=== PATIENT | male | born 1950 | race Caucasian/White ===

== ENCOUNTER 2017-07-06 11:21 | Inpatient (IN) | payer BC ==
[~2017-07-06] VITALS: Ht 175.3 cm; Wt 104.3 kg
[~2017-07-06 11:21] MED LIST: COUMADIN; LIPITOR20 MG PO; LOVENOX; PROSCAR5 MG PO; WARFARIN SODIUM5 MG PO; Z.0.LIPITOR20 MG
--- OUTSIDE RECORDS SUMMARY | 2017-07-06 11:24 | XMS REPORT | Clinical Summary ---
Author Author Brendan Church Organization [facility] Address Unknown Phone Unavailable Care Team Providers Care Platform Inspector Name Role Phone Asked, Pcp PCP Unavailable Allergies Active Allergy Reactions Severity Noted Date Comments Heparin 01/20/2016 Morphine Hives 01/20/2016 Current Medications Prescription Sig. Disp. Refills Start End Date Status Date calcium-vits 1 tab once daily Active P6-K-F1-minerals 166.75 mg- 166.75 unit capsule MULTIVITAMIN/IRON/FOLIC 1 tab daily Active ACID (CENTRUM COMPLETE ORAL) warfarin (COUMADIN) 7.5 TAKE 1 TABLET (7.5 MG) BY Active MG tablet ORAL ROUTE ONCE DAILY (MON/SAT/SAT) REST OF THE DAYS TAKE 5MG DAILY finasteride (PROSCAR) 5 Take 5 mg by mouth daily. Active mg tablet bisoprolol-hydrochlorothi Take 1 tablet by mouth Active azide (ZIAC) 10-6.25 mg daily. per tablet atorvastatin (LIPITOR) 20 TAKE 1 TABLET BY MOUTH 90 tablet 0 05/15/19 Active MG tablet EVERY DAY 18 warfarin (COUMADIN) 5 MG TAKE 2 TABLETS BY MOUTH 180 tablet 0 Active tablet EVERY DAY 18 amLODIPine (NORVASC) 2.5 TAKE 1 TABLET BY MOUTH 90 tablet 0 05/15/19 Active mg tablet DAILY 18 ATORVASTATIN CALCIUM 20 mg 1 tab daily 12/21/19 Discontin (LIPITOR ORAL) 17 ued warfarin (COUMADIN) 5 MG TAKE 2 TABLETS BY MOUTH 05/15/19 Discontin tablet EVERY DAY 18 ued amLODIPine (NORVASC) 2.5 TK 1 T PO D 3 12/12/19 03/10/20 Discontin mg tablet 17 17 ued atorvastatin (LIPITOR) 20 TK 1 T PO QD 3 12/12/19 03/10/20 Discontin MG tablet 17 17 ued amLODIPine (NORVASC) 2.5 TAKE 1 TABLET BY MOUTH 90 tablet 0 03/11/20 05/15/19 Discontin mg tablet DAILY 17 18 ued atorvastatin (LIPITOR) 20 TAKE 1 TABLET BY MOUTH 90 tablet 0 03/11/20 05/15/19 Discontin MG tablet EVERY DAY 17 18 ued Active Problems Problem Noted Date Degenerative lumbar spinal stenosis 12/20/2016 Chronic right-sided low back pain 12/20/2016 Atrial fibrillation [I48.91] 04/05/2016 Aortic valve replaced 04/05/2016 Right-sided low back pain with right-sided sciatica 01/20/2016 Right knee pain 01/20/2016 Primary osteoarthritis of right knee 01/20/2016 Compression fracture of L2 lumbar vertebra 01/20/2016 DDD (degenerative disc disease), lumbar 01/20/2016 Osteoporosis 01/20/2016 Spondylolisthesis at L5-S1 level 01/20/2016 Encounters Date Type Specialty Care Team Description 07/05/2017 Telephone Cardiology Carranza, Megan, POLICE COMMANDING OFFICER Anticoagulation 07/02/2017 Telephone Cardiology Carranza, Megan, POLICE COMMANDING OFFICER Anticoagulation 06/07/2017 Telephone Cardiology Carranza, Megan, POLICE COMMANDING OFFICER Anticoagulation 05/15/2017 Refill Cardiology Simone Mobley Med Refill 05/14/2017 Telephone Cardiology Carranza, Megan, POLICE COMMANDING OFFICER Anticoagulation 04/15/2017 Telephone Cardiology Carranza, Megan, POLICE COMMANDING OFFICER Anticoagulation 03/27/2017 Telephone Cardiology Arminda Love, SHANNON Anticoagulation 03/26/2017 Telephone Cardiology Moshe Lovea, SHANNON Anticoagulation 03/10/2017 Refill Cardiology Simone Mobley Med Refill 02/25/2017 Telephone Cardiology Carranza, Megan, POLICE COMMANDING OFFICER Anticoagulation 01/22/2017 Telephone Cardiology Carranza, Megan, POLICE COMMANDING OFFICER Anticoagulation 12/20/2016 Office Visit Orthopedic Surgery Pradip Schwartz MD Chronic right-sided low back pain, with sciatica presence unspecified (Primary Dx); Spondylolisthesis at L5-S1 level; Degenerative lumbar spinal stenosis 12/13/2016 Office Visit Orthopedic Surgery Richy Jordan MD Chronic pain of right knee (Primary Dx) 12/13/2016 Orders Only Orthopedic Surgery Shireen Mason MA Arthralgia of right knee (Primary Dx) 12/11/2016 Telephone Cardiology Carranza Megan, POLICE COMMANDING OFFICER Anticoagulation 11/05/2016 Telephone Cardiology Jaja Wing MA ANTICOAGULATION 10/04/2016 Telephone Cardiology Megan Carranza, POLICE COMMANDING OFFICER Anticoagulation 09/06/2016 Telephone Cardiology Megan Carranza, POLICE COMMANDING OFFICER Anticoagulation 09/03/2016 Telephone Cardiology CarranzaMercedes wilsone, POLICE COMMANDING OFFICER Anticoagulation 08/30/2016 Telephone Cardiology Megan Carranza, POLICE COMMANDING OFFICER Anticoagulation 08/10/2016 Telephone Cardiology Jaja Wing RN ANTICOAGULATION 07/16/2016 Telephone Cardiology Megan Carranza, POLICE COMMANDING OFFICER Anticoagulation after 07/05/2016 Family History Medical History Relation Name Comments Diabetes Father Relation Name Status Comments Father Social History Tobacco Use Types Packs/Day Years Used Date Never Smoker Sex Assigned at Date Recorded Not on file Last Filed Vital Signs Vital Sign Reading Time Taken Blood Pressure 135/78 12/20/2016 2:09 PM CDT Pulse - - Temperature - - Respiratory Rate - - Oxygen Saturation - - Inhaled Oxygen - - Concentration Weight 102 kg (225 lb) 12/20/2016 2:09 PM CDT Height 175.3 cm (5' 9") 12/20/2016 2:09 PM CDT Body Mass Index 33.23 12/20/2016 2:09 PM CDT Plan of Treatment Health Maintenance Due Date Last Done Comments COLONOSCOPY 1999 ZOSTER VACCINE 2009 PNEUMOCOCCAL 2014 POLYSACCHARIDE VACCINE AGE 65 AND OVER PNEUMOCOCCAL-13 2014 INFLUENZA VACCINE 12/04/2016 Results * Prothrombin time with INR (07/05/2017) Only the most recent of 15 results within the time period is included. Component Value Ref Range INR 5.70 Specimen Performing Laboratory [facility] * XR Lumbar Spine Complete 4+ Vw (12/20/2016 2:19 PM) [facility]imen [facility] [address] Narrative Lumbar spine x-rays including flexion and extension laterals reveal 5 oqo-frq-idmapjm segments. Moderate degenerative changes are noted at virtually every level. On the lateral view, there is a pars interarticularis defect with a spondylolisthesis grade 1. On flexion-extension this does not appear to translate very much. * XR Leg Length Evaluation (12/13/2016 10:25 AM) Specimen [facility] [address] [place] [address] Narrative Knee x-rays reveal preservation of the joint space bilaterally in the medial and lateral compartments as well as the patellofemoral space. Long-leg radiographs reveal neutral alignment with good preservation of hip joint spaces. * XR Knee 4+ Vw Right (12/13/2016 10:25 AM) Specimen Performing Laboratory [facility] [address] [facility] [place] [address] Narrative Knee x-rays reveal preservation of the joint space bilaterally in the medial and lateral compartments as well as the patellofemoral space. Long-leg radiographs reveal neutral alignment with good preservation of hip joint spaces. after 07/05/2016 Insurance Payer Benefit Subscriber ID Type Phone Address Plan / Group BCBS BCBS xxxxxxxxxxxx PPO CHOICE PPO/HYACINTH DUNLAP PPO
[2017-07-06] MEDS ORDERED: IPRATROPIUM BROMIDE 0.02% 2.5 ML NEB NEB STA (11:30)
[2017-07-06] MEDS ORDERED: ALBUTEROL SULF 0.083% NEB SOLN 3 ML NEB NEB STA (11:30)
[2017-07-06] MEDS ORDERED: SODIUM CHLORIDE 0.9% 1000ML 1,000 ML IV STA (11:30)
[2017-07-06] MEDS ORDERED: ACETAMINOPHEN/CODEINE ELIX 120-12 MG/5 ML UDC NG ONE (11:30)
[2017-07-06] MEDS ORDERED: DEXAMETHASONE SOD PHOS 10 MG/1 ML VIAL INJ ONE (11:30)
[2017-07-06 12:21] LABS: BASOPHILS % 0.2 % (0.0-1.0); BILIRUBIN,URINE NEGATIVE (NEGATIVE); EOSINOPHILS % 0.2 % (0.0-6.0); HEMATOCRIT 36.8 % (38.2-49.6); HEMOGLOBIN 12.1 g/dL (14.0-18.0); KETONES,URINE NEGATIVE (NEGATIVE); LEUKOCYTE ESTERASE ,URINE NEGATIVE (NEGATIVE); LYMPHOCYTES # (AUTO) 0.9 (1.0-3.2); LYMPHOCYTES % 5.3 % (18.0-39.1); MEAN CORPUSCULAR HEMOGLOBIN 28.5 pg (28-32); MEAN CORPUSCULAR HGB CONC 32.9 g/dL (31-35); MEAN CORPUSCULAR VOLUME 86.8 fL (81-99); MONOCYTES # (AUTO) 1.1 (0.2-0.8); MONOCYTES % 6.5 % (4.4-11.3); NEUTROPHILS # (AUTO) 14.6 (2.1-6.9); NITRITE,URINE NEGATIVE (NEGATIVE); PLATELET COUNT 238 x10e3/uL (140-360); RED BLOOD COUNT 4.24 x10e6/uL (4.3-5.7); RED CELL DISTRIBUTION WIDTH 13.8 % (11.7-14.4); URINE UROBILINOGEN 0.2 mg/dL (0.2 - 1)
[2017-07-06 12:24] LABS: CLARITY,URINE CLEAR (CLEAR); COLOR,URINE YELLOW (YELLOW); PROTEIN,URINE DIPSTICK 1+ (NEGATIVE)
[2017-07-06 12:34] LABS: EPITHELIAL CELLS,URINE MODERATE /LPF
[2017-07-06 12:36] LABS: INR 4.08; PROTHROMBIN TIME 37.2 seconds (11.9-14.5)
[2017-07-06 12:37] LABS: PARTIAL THROMBOPLASTIN TIME 64.9 seconds (23.8-35.5)
[2017-07-06 12:46] LABS: ALANINE AMINOTRANSFERASE 30 IU/L (0-55); ALBUMIN 3.6 g/dL (3.5-5.0); ALKALINE PHOSPHATASE 82 IU/L (40-150); ANION GAP 14.5 mmol/L (8-16); BLOOD UREA NITROGEN 13 mg/dL (7-26); BUN/CREATININE RATIO 16 (6-25); CALCIUM 8.8 mg/dL (8.4-10.2); CARBON DIOXIDE 25 mmol/L (22-29); CHLORIDE 104 mmol/L (98-107); CREATINE KINASE 307 IU/L (30-200); EST GLOMERULAR FILTRATION RATE > 60 ML/MIN (60-); GLUCOSE 94 mg/dL (74-118); POTASSIUM 3.5 mmol/L (3.5-5.1); SODIUM 140 mmol/L (136-145)
[2017-07-06] MEDS ORDERED: SODIUM CHLORIDE FLUSH 10 ML SYR INJ PRN (14:00)
[2017-07-06] MEDS ORDERED: ALBUTEROL SULF 0.083% NEB SOLN 3 ML NEB NEB SCH (14:00)
--- NOTE | 2017-07-06 14:12 | Diagnostic Imaging Report ---
EXAMINATION: CHEST 2 VIEWS INDICATION: \S\ORDER PLACED BY \S\[id number] \S\1300 \S\Y COMPARISON: None FINDINGS: PA and lateral views TUBES and LINES: None. LUNGS: Lungs are well inflated. Indeterminate nodular opacity in the left perihilar region. Large consolidation in the left lower lobe. PLEURA: No pleural effusion or pneumothorax. HEART AND MEDIASTINUM: The cardiac silhouette is mildly enlarged. Tortuous thoracic aorta. BONES AND SOFT TISSUES: Intact median sternotomy wires. Soft tissues are unremarkable. UPPER ABDOMEN: No free air under the diaphragm. IMPRESSION: Left lower lobe consolidation with indeterminate opacity in the left perihilar region. Signed by: Dr. Sweta Fishman M.D. on 07/06/2017 2:08 PM
[2017-07-06] MEDS: CEFTRIAXONE SOD 1 GM VIAL IV SCH (14:20)
[2017-07-06] MEDS ORDERED: AZITHROMYCIN 500MG/NS 250 ML 250 ML IV NR (15:00)
[2017-07-06] MEDS ORDERED: POTASSIUM CHLORIDE 20 MEQ TAB CR PO NR (15:00)
--- NOTE | 2017-07-06 15:14 | Diagnostic Imaging Report ---
EXAM: CT Chest WITH contrast 07/06/2017 11:30 AM INDICATION: \S\pe protocol \[id number] \S\1300 COMPARISON: Chest radiograph from 07/06/2017 TECHNIQUE: Abdomen and pelvis were scanned utilizing a multidetector helical scanner from the lung base to the pubic symphysis after administration of IV contrast. A second set of postcontrast images was obtained due to poor contrast density during the first IV contrast administration. Pulmonary embolism protocol was obtained. Coronal and sagittal reformations were obtained. IV CONTRAST: 70 mL Isovue-370 followed x 100 mL of Isovue-370. First bolus with low poor endovascular density. ORAL CONTRAST: None COMPLICATIONS: None RADIATION DOSE: Total DLP: 642.6 mGy*cm Estimated effective dose: (DLP x 0.015 x size factor) mSv CTDIvol has been reviewed. It is below the limits set by the Radiation Protocol Committee (RPC). FINDINGS: LINES/ TUBES: None. PULMONARY ARTERIES: No filling defects within the main pulmonary artery, major branches, the segmental and subsegmental level. The main pulmonary arteries enlarged measuring 4.1 cm and suggestive of pulmonary hypertension. No right ventricular strain. LUNGS AND AIRWAYS: Large left lower lobe groundglass and nodular consolidation. 2.4 x 1.7 cm pleural-based solid nodule in the left upper lobe anteriorly for represent subpleural mass or a lung parenchymal nodule. Subsegmental atelectasis in the right lower lobe. No bronchiectasis. Diffuse bilateral septal thickening suggestive of interstitial edema. PLEURA: The pleural spaces are clear. HEART AND MEDIASTINUM: The thyroid gland is normal. Extensive mediastinal lymphadenopathy and a few small right hilar lymph nodes. Cardiomegaly. There is no pericardial effusion. Diffuse coronary artery calcifications. Status post aortic valve replacement. Ectasia of the aortic root at the sinus of Valsalva (4.0 cm) and ascending thoracic aorta (4.1 cm). Scattered atherosclerotic calcifications throughout the aortic arch and descending thoracic segment. UPPER ABDOMEN: Surgical changes in the stomach. BONES: Intact median sternotomy wires. SOFT TISSUES: Unremarkable. IMPRESSION: 1. No pulmonary embolism. 2. Large left lower lobe consolidation highly suggestive of pneumonia. 3. Cardiomegaly with associated interstitial edema. 4. Mediastinal lymphadenopathy may be reactive. 5. Pleural-based 2.4 cm nodule is indeterminate. Recommend follow-up above findings with CT chest without contrast in 3-4 weeks. Signed by: Dr. Sweta Fishman M.D. on 07/06/2017 3:11 PM
[2017-07-06] MEDS: LOSARTAN POTASSIUM 100 MG TAB PO SCH (15:16)
[2017-07-06 15:24] LABS: THYROID STIMULATING HORMONE 1.212 uIU/mL (0.350-4.940)
--- OUTSIDE RECORDS SUMMARY | 2017-07-06 15:28 | XMS REPORT ---
Author Author [facility] Address Unknown Phone Unavailable Care Team Providers Care Sports Physiotherapist Name Role Phone AISHA BARROW Unavailable Unavailable Problems This patient has no known problems. Allergies, Adverse Reactions, Alerts This patient has no known allergies or adverse reactions. Medications This patient has no known medications. Results Test Description Test Time Test Comments Text Results Atomic Results Result Comments CHEST 2 VIEWS [place] [address] Patient Name: ALECIA MENDIOLA MR #: [id number] : 1950 Age/Sex: 67/M Req #: [id number] Adm Physician: Ordered by: RIAN FELICIANO MACHINE WOODWORKING SANDER Report #: [id number] Location: ER Room/Bed: Procedure: [id number] DX/CHEST 2 VIEWS Exam Date: 07/06/17 Exam Time: 1300 REPORT STATUS: Signed EXAMINATION: CHEST 2 VIEWS INDICATION: COMPARISON: None FINDINGS: PA and lateral views TUBES and LINES: None. LUNGS: Lungs are well inflated. Indeterminate nodular opacity in the left perihilar region. Large consolidation in the left lower lobe. PLEURA: No pleural effusion or pneumothorax. HEART AND MEDIASTINUM: The cardiac silhouette is mildly enlarged. Tortuous thoracic aorta. BONES AND SOFT TISSUES: Intact median sternotomy wires. Soft tissues are unremarkable. UPPER ABDOMEN: No free air under the diaphragm. IMPRESSION: Left lower lobe consolidation with indeterminate opacity in the left perihilar region. Signed by: Dr. Chantelle Yang M.D. on 07/06/2017 2:08 PM Dictated By: CHANTELLE YANG MD 07 Transcribed By: LINDSEY on 07/06/171407 COPY TO: RIAN FELICIANO MACHINE WOODWORKING SANDER CT CHEST W [place] [address] Patient Name: ALECIA MENDIOLA MR #: [id number] : 1950 Age/Sex: 67/M Req #: [id number] Adm Physician: Ordered by: RIAN FELICIANO NP Report #: [id number] Location: ER Room/Bed: Procedure: [id number] CT/CT CHEST W Exam Date: 07/06/17 Exam Time: 1300 REPORT STATUS: Signed EXAM: CT Chest WITH contrast 07/06/2017 11:30 AM INDICATION: COMPARISON: Chest radiograph from 07/06/2017 TECHNIQUE: Abdomen and pelvis were scanned utilizing a multidetector helical scanner from the lung base to the pubic symphysis after administration of IV contrast. A second set of postcontrast images was obtained due to poor contrast density during the first IV contrast administration. Pulmonary embolism protocol was obtained. Coronal and sagittal reformations were obtained. IV CONTRAST: 70 mL Isovue-370 followed x 100 mL of Isovue-370. First bolus with low poor endovascular density. ORAL CONTRAST: None COMPLICATIONS: None RADIATION DOSE: Total DLP : 642.6 mGy*cm Estimated effective dose: (DLP x 0.015 x size factor) mSv CTDIvol has been reviewed. It is below the limits set by the Radiation Protocol Committee (RPC). FINDINGS: LINES/ TUBES: None. PULMONARY ARTERIES: No filling defects within the main pulmonary artery, major branches, the segmental and subsegmental level. The main pulmonary arteries enlarged measuring 4.1 cm and suggestive of pulmonary hypertension. No right ventricular strain. LUNGS AND AIRWAYS: Large left lower lobe groundglass and nodular consolidation. 2.4 x 1.7 cm pleural-based solid nodule in the left upper lobe anteriorly for represent subpleural mass or a lung parenchymal nodule. Subsegmental atelectasis in the right lower lobe. No bronchiectasis. Diffuse bilateral septal thickening suggestive of interstitial edema. PLEURA: The pleural spaces are clear. HEART AND MEDIASTINUM: The thyroid gland is normal. Extensive mediastinal lymphadenopathy and a few small right hilar lymph nodes. Cardiomegaly. There is no pericardial effusion. Diffuse coronary artery calcifications. Status post aortic valve replacement. Ectasia of the aortic root at the sinus of Valsalva (4.0 cm) and ascending thoracic aorta (4.1 cm). Scattered atherosclerotic calcifications throughout the aortic arch and descending thoracic segment. UPPER ABDOMEN: Surgical changes in the stomach. BONES: Intact median sternotomy wires. SOFT TISSUES: Unremarkable. IMPRESSION: 1. No pulmonary embolism. 2. Large left lower lobe consolidation highly suggestive of pneumonia. 3. Cardiomegaly with associated interstitial edema. 4. Mediastinal lymphadenopathy may be reactive. 5. Pleural-based 2.4 cm nodule is indeterminate. Recommend follow-up above findings with CT chest without contrast in 3-4 weeks. Signed by: Dr. Chantelle Yang M.D. on 07/06/2017 3:11 PM Dictated By: CHANTELLE YANG MD 1511 COPY TO: RIAN FELICIANO NP
--- OUTSIDE RECORDS SUMMARY | 2017-07-06 15:28 | XMS REPORT | Clinical Summary ---
Author Author Brendan Church Organization [facility] Address Unknown Phone Unavailable Care Team Providers Care Statistical Programmer Name Role Phone Asked, Pcp PCP Unavailable Allergies Active Allergy Reactions Severity Noted Date Comments Heparin 01/20/2016 Morphine Hives 01/20/2016 Current Medications Prescription Sig. Disp. Refills Start End Date Status Date calcium-vits 1 tab once daily Active A1-A-B6-minerals 166.75 mg- 166.75 unit capsule MULTIVITAMIN/IRON/FOLIC 1 [...] Team Description 07/05/2017 Telephone Cardiology Carranza, Megan, NUISANCE ANIMAL DAMAGE CONTROL AGENT Anticoagulation 07/02/2017 Telephone Cardiology Carranza, Megan, NUISANCE ANIMAL DAMAGE CONTROL AGENT Anticoagulation 06/07/2017 Telephone Cardiology Carranza, Megan, NUISANCE ANIMAL DAMAGE CONTROL AGENT Anticoagulation 05/15/2017 Refill Cardiology Simone Mobley Med Refill 05/14/2017 Telephone Cardiology Carranza, Megan, NUISANCE ANIMAL DAMAGE CONTROL AGENT Anticoagulation 04/15/2017 Telephone Cardiology Carranza, Megan, NUISANCE ANIMAL DAMAGE CONTROL AGENT Anticoagulation 03/27/2017 Telephone Cardiology Arminda Love, SHANNON Anticoagulation 03/26/2017 Telephone Cardiology Moshe Lovea, SHANNON Anticoagulation 03/10/2017 Refill Cardiology Simone Mobley Med Refill 02/25/2017 Telephone Cardiology Carranza, Megan, NUISANCE ANIMAL DAMAGE CONTROL AGENT Anticoagulation 01/22/2017 Telephone Cardiology Carranza, Megan, NUISANCE ANIMAL DAMAGE CONTROL AGENT Anticoagulation 12/20/2016 Office Visit Orthopedic Surgery Pradip Schwartz MD Chronic right-sided low back pain, with sciatica presence unspecified (Primary Dx); Spondylolisthesis at L5-S1 level; Degenerative lumbar spinal stenosis 12/13/2016 Office Visit Orthopedic Surgery Richy Jordan MD Chronic pain of right knee (Primary Dx) 12/13/2016 Orders Only Orthopedic Surgery Shireen Mason MA Arthralgia of right knee (Primary Dx) 12/11/2016 Telephone Cardiology Carranza Megan, NUISANCE ANIMAL DAMAGE CONTROL AGENT Anticoagulation 11/05/2016 Telephone Cardiology Jaja Wing MA ANTICOAGULATION 10/04/2016 Telephone Cardiology Megan Carranza, NUISANCE ANIMAL DAMAGE CONTROL AGENT Anticoagulation 09/06/2016 Telephone Cardiology Megan Carranza, NUISANCE ANIMAL DAMAGE CONTROL AGENT Anticoagulation 09/03/2016 Telephone Cardiology CarranzaMercedes wilsone, NUISANCE ANIMAL DAMAGE CONTROL AGENT Anticoagulation 08/30/2016 Telephone Cardiology Megan Carranza, NUISANCE ANIMAL DAMAGE CONTROL AGENT Anticoagulation 08/10/2016 Telephone Cardiology Jaja Wing RN ANTICOAGULATION 07/16/2016 Telephone Cardiology Megan Carranza, NUISANCE ANIMAL DAMAGE CONTROL AGENT Anticoagulation after 07/05/2016 Family History Medical History [...] Vw (12/20/2016 2:19 PM) Specimen Performing [facility] [place] [address] Narrative Lumbar spine x-rays including flexion and extension laterals reveal 5 ltb-aby-ouuyper segments. Moderate degenerative changes are noted at virtually every level. On the lateral view, there is a pars interarticularis defect with a spondylolisthesis grade 1. On flexion-extension this does not appear to translate very much. * XR Leg Length Evaluation (12/13/2016 10:25 AM) Specimen Performing Laboratory [facility] [address] [place] [address] Narrative Knee x-rays reveal preservation of the joint space bilaterally in the medial and lateral compartments as well as the patellofemoral space. Long-leg radiographs reveal neutral alignment with good preservation of hip joint spaces. * XR Knee 4+ Vw Right (12/13/2016 10:25 AM) Specimen Performing Laboratory [facility] [address] [facility] [place] [address] Narrative Knee x-rays reveal preservation of the joint space bilaterally in the medial and lateral compartments as well as the patellofemoral space. Long-leg radiographs reveal neutral alignment with good preservation of hip joint spaces. after 07/05/2016 Insurance Payer Benefit Subscriber ID Type Phone Address Plan / Group BCBS BCBS xxxxxxxxxxxx PPO CHOICE PPO/HYACINTH DUNLAP PPO
[2017-07-06 16:00] VITALS: BP 132/69
[2017-07-06] MEDS ORDERED: COUMADIN2.5 MG PO (16:31)
[2017-07-06] MEDS ORDERED: AMLODIPINE BESYL5 MG PO (16:31)
[2017-07-06] MEDS ORDERED: SODIUM CHLORIDE 0.9% 50ML 50 ML ONE ×2 (18:49→18:51)
[2017-07-06] MEDS ORDERED: IOPAMIDOL 370 MG/ML 200 ML INFUS..BTL INJ ONE ×2 (18:50→18:51)
[2017-07-06] MEDS: IPRATROPIUM BROMIDE 0.02% 2.5 ML NEB NEB SCH (19:45)
[2017-07-06] MEDS: ALBUTEROL SULF 0.083% NEB SOLN 3 ML NEB NEB SCH (19:45)
[2017-07-06 20:00] VITALS: BP 137/69
[2017-07-06] MEDS: ATORVASTATIN 20 MG TAB PO SCH (20:48)
[2017-07-06 21:12] LABS: CREATINE KINASE MB 1.2 ng/mL (0-5.0)
[2017-07-06 22:03] VITALS: BP 137/69
[2017-07-06] MEDS: ACETAMINOPHEN 325 MG TAB PO PRN (22:27)
--- NOTE | 2017-07-07 01:03 | Consultation ---
DATE OF CONSULTATION: July 06, 2017 PULMONARY CONSULTATION Patient of Dr. Trevor Beltre, Dr. Jeff (sp?), Dr. Jacobs (sp?), Dr. Clemente, . HISTORY: Charming, but unfortunate 67-year-old gentleman admitted with productive cough, chills, and fever of 6 days duration. He has a history of asthma, diagnosed 5 years ago. History of aortic valve replacement, [facility] valve. He has a history of rheumatic heart disease, diagnosed in 1992. He was given a prescription for steroids and Zithromax by Dr. Jacobs (sp?), but did not take that medication. He saw Dr. Clemente, who recommended bronchodilators and low-dose steroids. ALLERGIES: HE HAS A HISTORY OF ALLERGY TO HEPARIN, PRESUMABLY HIT. MEDICATIONS: He takes Coumadin and Advair at home as well as amlodipine, finasteride, and Lipitor. SOCIAL HISTORY: Rarely drinks. Does not smoke. 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 FAMILY HISTORY: Positive for heart failure, renal failure, diabetes, and coronary artery disease in the father. PAST MEDICAL HISTORY: In addition to aortic valve replacement, he has had meniscus surgery of the knee and gastric bypass. He has apparently cured his diabetes. PHYSICAL EXAMINATION: GENERAL: This is a well-developed moderately obese white male, in no acute distress. VITAL SIGNS: Temperature 99, pulse 76, blood pressure 141/70. HEAD: Normocephalic, atraumatic. LUNGS: Diminished breath sounds. Rales, left base. HEART: Regular rhythm. ABDOMEN: Nontender. EXTREMITIES: Nonedematous. IMPRESSION: Left lower lobe pneumonia. Patient with aortic valve replacement, chronically anticoagulated. He has had some hemoptysis, but his pro time is quite elevated. There was also evidence of reactive adenopathy. PLAN: To continue antibiotics. He will require a followup CT. He likely would prefer to go to his regular mangle operator garments, Dr. Clemente. Thank you for this kind referral. Job#: [id number]
[2017-07-07] MEDS: IPRATROPIUM BROMIDE 0.02% 2.5 ML NEB NEB SCH ×4 (01:10→19:38)
[2017-07-07] MEDS: ALBUTEROL SULF 0.083% NEB SOLN 3 ML NEB NEB SCH ×4 (01:10→19:38)
[2017-07-07 06:20] LABS: BASOPHILS % 0.1 % (0.0-1.0); HEMATOCRIT 32.9 % (38.2-49.6); LYMPHOCYTES # (AUTO) 0.8 (1.0-3.2); LYMPHOCYTES % 3.5 % (18.0-39.1); MEAN CORPUSCULAR HGB CONC 33.4 g/dL (31-35); MEAN CORPUSCULAR VOLUME 86.8 fL (81-99); MONOCYTES % 4.6 % (4.4-11.3); NEUTROPHILS # (AUTO) 19.8 (2.1-6.9); NEUTROPHILS % 91.2 % (38.7-80.0); PLATELET COUNT 200 x10e3/uL (140-360); RED BLOOD COUNT 3.79 x10e6/uL (4.3-5.7); RED CELL DISTRIBUTION WIDTH 13.8 % (11.7-14.4)
[2017-07-07 06:33] LABS: INR 4.16; PROTHROMBIN TIME 37.8 seconds (11.9-14.5)
[2017-07-07 06:44] LABS: CREATINE KINASE MB 1.2 ng/mL (0-5.0)
[2017-07-07 08:00] VITALS: BP 124/69
[2017-07-07] MEDS: FINASTERIDE 5 MG TAB PO SCH (09:00)
[2017-07-07] MEDS: LOSARTAN POTASSIUM 100 MG TAB PO SCH (09:00)
[2017-07-07] MEDS: AZITHROMYCIN 500MG/NS 250 ML 250 ML IV SCH (10:00)
[2017-07-07 12:00] VITALS: BP 147/89
[2017-07-07] MEDS ORDERED: SODIUM CHLORIDE 0.9% 50ML 50 ML ONE (12:28)
[2017-07-07 14:13] LABS: CREATINE KINASE MB 1.3 ng/mL (0-5.0)
[2017-07-07 14:27] LABS: % IRON SATURATION 16 % (15-50); IRON 37 ug/dL (65-175); TOTAL IRON BINDING CAPACITY 235 ug/dL (261-478); TRANSFERRIN 168 mg/dL (174-364)
[2017-07-07] MEDS ORDERED: POTASSIUM CHLORIDE 20 MEQ TAB CR PO NR (14:45)
[2017-07-07] MEDS: CEFTRIAXONE SOD 1 GM VIAL IV SCH (15:20)
[2017-07-07 16:00] VITALS: BP 128/59
[2017-07-07 20:00] VITALS: BP 141/72
[2017-07-07] MEDS: ACETAMINOPHEN 325 MG TAB PO PRN (21:10)
[2017-07-07] MEDS: ATORVASTATIN 20 MG TAB PO SCH (21:10)
[2017-07-07 21:44] VITALS: BP 128/59
[2017-07-08] VITALS: BP 121/79
[2017-07-08] MEDS: ALBUTEROL SULF 0.083% NEB SOLN 3 ML NEB NEB SCH ×2 (01:07→07:10)
[2017-07-08] MEDS: IPRATROPIUM BROMIDE 0.02% 2.5 ML NEB NEB SCH ×2 (01:07→07:10)
[2017-07-08 04:00] VITALS: BP 145/94
[2017-07-08 06:30] LABS: INR 2.43; PROTHROMBIN TIME 24.8 seconds (11.9-14.5)
[2017-07-08 08:00] VITALS: BP 124/67
[2017-07-08] MEDS: LOSARTAN POTASSIUM 100 MG TAB PO SCH (08:51)
[2017-07-08] MEDS: AZITHROMYCIN 500MG/NS 250 ML 250 ML IV SCH (08:51)
[2017-07-08] MEDS: FINASTERIDE 5 MG TAB PO SCH (08:51)
--- NOTE | 2017-07-08 09:08 | History and Physical ---
HISTORY: This is a 67-year-old white man, seen in the emergency room at [facility] because of bilateral pneumonia with hemoptysis, elevated white count of 16,000 and elevated INR over 5 in the setting of previous mechanical aortic valve replacement and atrial fibrillation with right bundle-branch block. 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 His lung doctor is Dr. Clemente at [place]. Apparently, he has chronic atrial fibrillation. He is status post aortic valve replacement with mechanical St. Jef aortic valve. He was taking approximately 5.5 mg of Coumadin per day average and his INR was over 5. He started getting sick, had persistent severe cough, eventually causing hemoptysis. He saw Dr. Jacobs 4 days ago, was prescribed antibiotics, but made a switch to just bronchodilators with Advair, albuterol, prednisone, fluticasone and Mucinex by Dr. Clemente at [place] [facility] the following day. He failed to improve, eventually was coughing up of blood, came to the emergency room. CT scan showed left lower lobe pneumonia and trace right lower lobe pneumonia. The patient is being admitted. A flu test was negative. PAST MEDICAL HISTORY: Remarkable for gastric bypass right after a kidney surgery, as well as the above mentioned aortic valve replacement with a mechanical St. Jef aortic valve. There is a history of benign prostatic hypertrophy. MEDICATIONS AT HOME: Includes 1. Coumadin averaging 5.5 mg per day. 2. Lipitor. 3. Proscar. 4. Unknown blood pressure medication thought to be lisinopril. PERSONAL AND SOCIAL HISTORY: Denies smoking, was drinking 1 day a month. 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 FAMILY HISTORY: Father had coronary artery disease, end-stage renal disease, diabetes, congestive heart failure. Mother had COPD. Sister and brothers all had gastric bypass. ALLERGIES: TO HEPARIN, WHICH MAY HAVE CAUSED THROMBOCYTOPENIA. REVIEW OF SYSTEMS: Noncontributory. PHYSICAL EXAMINATION GENERAL: He is alert, coherent, appears to be comfortable. VITAL SIGNS: Otherwise stable with temperature of 99.6, blood pressure 176/84. NECK: Jugular venous was not distended. CARDIAC: S1, S2. Rate irregularly irregular with variable intensity of S1. The S2 sound appears to be muffled rather than mechanical. LUNGS: Diminished breath sounds in the left. ABDOMEN: Soft. Bowel sounds are present. EXTREMITIES: No cyanosis, clubbing or edema. LABORATORY STUDIES: Electrocardiogram showed atrial fibrillation with ventricular rate of 81 beats per minute, right bundle-branch block, left anterior hemiblock, cannot exclude old inferior wall myocardial infarction. Chest x-ray as mentioned. CT scan as mentioned. The electrolytes are negative. Current INR was 4.0. IMPRESSIONS 1. Left lower lobe pneumonia with trace right lower lobe pneumonia associated with fever, leukocytosis, hemoptysis, requiring hospitalization and intravenous antibiotics after being treated for 4 days as an outpatient. 2. Excessive anticoagulation with international normalized ratio up to 5, but currently down to 4. This patient has a chronic atrial fibrillation, as well as mechanical aortic valve replacement. 3. Status post mechanical aortic valve replacement with S2 sounds somewhat muffled. 4. Chronic atrial fibrillation with right bundle-branch block. 5. Hyperlipidemia. 6. Benign prostatic hypertrophy. 7. Hypertension. 8. Asthmatic bronchitis. RECOMMENDATIONS: Adjust Coumadin in relationship to antibiotics. Avoid heparin since the patient is allergic. Consult pulmonary. Consider echocardiogram. Adjust Coumadin as needed. Adjust blood pressure medications. Job#: [id number] DARRELL cc:REUBEN JACOBS M.D.
[2017-07-08 10:46] LABS: BASOPHILS % 0.2 % (0.0-1.0); EOSINOPHILS # (AUTO) 0.1 (0.0-0.4); EOSINOPHILS % 0.4 % (0.0-6.0); HEMATOCRIT 33.5 % (38.2-49.6); HEMOGLOBIN 11.1 g/dL (14.0-18.0); LYMPHOCYTES # (AUTO) 1.3 (1.0-3.2); LYMPHOCYTES % 6.7 % (18.0-39.1); MEAN CORPUSCULAR HEMOGLOBIN 29.1 pg (28-32); MEAN CORPUSCULAR HGB CONC 33.1 g/dL (31-35); MEAN CORPUSCULAR VOLUME 87.7 fL (81-99); MONOCYTES # (AUTO) 1.3 (0.2-0.8); MONOCYTES % 6.8 % (4.4-11.3); NEUTROPHILS # (AUTO) 15.9 (2.1-6.9); NEUTROPHILS % 84.7 % (38.7-80.0); PLATELET COUNT 215 x10e3/uL (140-360); RED BLOOD COUNT 3.82 x10e6/uL (4.3-5.7); RED CELL DISTRIBUTION WIDTH 14.1 % (11.7-14.4)
[2017-07-08] MEDS ORDERED: GUAIFENESIN/DEXTROMETHORPHAN LIQD 5 ML UDC NG PRN (11:00)
[2017-07-08] MEDS ORDERED: CEFTIN250 MG/5 M PO (11:05)
[2017-07-08] MEDS ORDERED: AZITHROMYCIN500 MG PO (11:05)
[2017-07-08] MEDS ORDERED: COUMADIN5 MG PO (11:05)
--- NOTE | 2017-07-08 11:48 | Cardiology Report ---
DATE OF STUDY: ECHOCARDIOGRAM M-MODE: Dilated left atrium. Left ventricular hypertrophy. Normal contractility. Mechanical prosthetic aortic valve. Normal mitral and tricuspid valves. No pericardial effusion. SECTOR SCAN: Dilated left atrium, left ventricular hypertrophy. Normal contractility. Ejection fraction is approximately 60%. Mechanical prosthetic aortic valve. Normal mitral and tricuspid valves. No pericardial effusion. CAROTID DOPPLER STUDY WITH COLOR: Trace aortic regurgitation. Aortic velocity is 2.3 m per sec with triangular-shaped outflow velocity. There is 1+ mitral and tricuspid regurgitation. Pulmonary artery systolic pressure estimated at 42 mmHg. Peak aortic velocity is 2.3 m per sec. Aortic valve area is calculated at 1.1 cm squared. There is echogenicity within the left atrium. CARDIAC DOPPLER STUDY WITH COLOR: Aortic velocity is 2.3 m per sec with trace aortic regurgitation. Aortic valve area is calculated at 1.1 cm squared. Mean aortic gradient is 12.4. There is 1+ mitral and tricuspid regurgitation. Pulmonary artery systolic pressure estimated at 42 mmHg. CONCLUSIONS 1. Dilated left atrium with echogenicity within the left atrium. Cannot exclude atrial thrombus. 2. Prosthetic St. Jef's mechanical aortic valve of undetermined size with peak aortic velocity 2.3 m per sec with trace aortic regurgitation with poorly imaged leaflets. Probably represents satisfactory aortic mechanical valve function with perivalvular leak. 3. Mild mitral regurgitation with dilated left atrium. 4. Mild tricuspid regurgitation with mild pulmonary hypertension. Pulmonary artery systolic pressure estimated at 42 mmHg. RECOMMENDATIONS: Consider transesophageal echocardiogram to further delineate left atrial echogenicity. If needed, aortic valve can be further interrogated. Also consider fluoroscopy visualization of the St. Jef's valve leaflets. Job#: [id number] KB cc:DR. HUMBERTO OWUSU
[2017-07-08 12:02] VITALS: BP 131/84
[2017-07-08 12:15] VITALS: BP 131/84
--- NOTE | 2017-07-08 12:29 | Discharge Summary ---
CLINICAL HISTORY: This is a 67-year-old white man with history of aortic valve replacement with a mechanical St. Jef aortic valve, admitted via emergency room because of hemoptysis, excessive anticoagulation with previous INR over 5 and because of pneumonia. Please refer to my previous dictation concerning details of current illness, past medical history, personal/social history, family history, review of systems, physical examination, and initial laboratory studies. HOSPITAL COURSE: The patient was already undergoing outpatient therapy without improvement. His Coumadin was withheld when the INR dropped down to 2.4. The Coumadin was resumed. His hemoptysis stopped in the interim. He was given cough suppressants judiciously given the fact that he had pneumonia. His white count remained elevated around 21,000 even though he is not on any steroids. Because of persistent cough and concern that the patient may resume hemoptysis, we decided to give him Robitussin DM. He could not produce his blood pressure p.o. medication until late in his hospitalization and it turns out it was amlodipine 2.5 mg. We had given him losartan. He was on lisinopril causing him to cough. He had an echocardiogram because his aortic valves sound appears to be muffled on examination; however, FANTASMA failed to show definite malfunctioning of the prosthetic St. Jef aortic valve with velocity of 2.1 meters per second, satisfactorily showed acceleration time and Doppler index. There was trace paravalvular leak; however, the patient does have an echogenic area in the left atrium which is enlarged. Thrombosis cannot be completely excluded, although the patient had been excessively anticoagulated. Nonetheless, transesophageal echocardiogram is recommended, but the patient was very attached to his potato chip maker, Dr. Simone Guerrero. We will therefore refer him back to his own potato chip maker for this procedure. He is discharged on Robitussin DM, Coumadin 4 mg per day, azithromycin 500 mg p.o., Ceftin 250 mg b.i.d. as well as his previous medications, which included finasteride and atorvastatin. He was given activity, diet, medication, and followup instructions. Will follow up with Dr. Jeff, his own potato chip maker, Dr. 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 DISCHARGE DIAGNOSES 1. Bilateral lower lobe pneumonia, worse on the left side. 2. Echogenicity in left atrium, consider thrombus, although the patient was excessively anticoagulated. 3. Excessive anticoagulation with hemoptysis. 4. Aortic valve replacement with mechanical St. Jef aortic valve of undetermined size. 5. Paravalvular aortic valve leak without definite aortic valve stenosis, although the leaflets were poorly visualized. 6. Hypertension. 7. Benign prostatic hypertrophy. 8. History of asthmatic bronchitis. 9. Chronic atrial fibrillation with right bundle branch block. 10. Hyperlipidemia. RECOMMENDATIONS: Transesophageal echocardiogram in the future with his own potato chip maker. Resume anticoagulation keeping INR in the range of 2.5 to 3.5. AISHA BARROW MD Job#: [id number] VAS cc:MD RIAN BORREGO MD DR. JOHN MCMARIAN DR FAISAL
[2017-07-08] MEDS ORDERED: WARFARIN SOD 5 MG TAB PO SCH (17:00)
[2017-07-09] MEDS ORDERED: AMLODIPINE BESYLATE 5 MG TAB PO SCH (09:00)
== END 2017-07-08 13:52 | disposition home or self-care (01) | DRG 194 ==
LOC: ER 11:21 → ERHOLD 15:25 → MED/SURG2 17:03
PROVIDERS: ADMIT Internal Medicine Cardiovascular Disease; ATTEND Internal Medicine Cardiovascular Disease
DX: J18.0 Bronchopneumonia, unspecified organism (principal); R04.2 Hemoptysis; T82.03XA Leakage of heart valve prosthesis, initial encounter; I24.0 Acute coronary thrombosis not resulting in myocardial infarction; Z95.2 Presence of prosthetic heart valve; Z79.01 Long term (current) use of anticoagulants; R59.9 Enlarged lymph nodes, unspecified; E66.9 Obesity, unspecified; Z68.34 Body mass index [BMI] 34.0-34.9, adult; R89.2 Abnormal level of other drugs, medicaments and biological substances in specimens from other organs, systems and tissues; T45.515A Adverse effect of anticoagulants, initial encounter; N40.0 Benign prostatic hyperplasia without lower urinary tract symptoms; I51.7 Cardiomegaly; I08.1 Rheumatic disorders of both mitral and tricuspid valves; I48.2 Chronic atrial fibrillation; I45.10 Unspecified right bundle-branch block
CPT/HCPCS: 36415; 71046; 71260; 80053; 81001; 82270; 82550; 82553; 83540; 83605; 84436; 84443; 84466; 84479; 84484; 85025; 85610; 85730; 87040; 87070; 87205; 87400; 93005; 93306; 94640; 99284; J0456; J0696; J1100; J7030; Q9967

== ENCOUNTER 2017-12-28 02:47 | Emergency (ER) | payer BC, MEDICARE ==
[~2017-12-28] VITALS: Ht 175.3 cm; Wt 104.3 kg
[~2017-12-28 02:47] MED LIST changes: +AMLODIPINE BESYL5 MG PO; +AZITHROMYCIN500 MG PO; +CEFTIN250 MG/5 M PO; +COUMADIN2.5 MG PO; +COUMADIN5 MG PO
[2017-12-28 03:23] LABS: BASOPHILS # (AUTO) 0.2 (0.0-0.1); BASOPHILS % 1.4 % (0.0-1.0); EOSINOPHILS # (AUTO) 0.1 (0.0-0.4); EOSINOPHILS % 1.1 % (0.0-6.0); HEMATOCRIT 34.7 % (38.2-49.6); HEMOGLOBIN 10.6 g/dL (14.0-18.0); LYMPHOCYTES % 25.6 % (18.0-39.1); MEAN CORPUSCULAR HEMOGLOBIN 25.4 pg (28-32); MEAN CORPUSCULAR HGB CONC 30.5 g/dL (31-35); MONOCYTES % 8.6 % (4.4-11.3); NEUTROPHILS # (AUTO) 7.1 (2.1-6.9); NEUTROPHILS % 60.3 % (38.7-80.0); PLATELET COUNT 223 x10e3/uL (140-360); RED BLOOD COUNT 4.18 x10e6/uL (4.3-5.7); RED CELL DISTRIBUTION WIDTH 17.2 % (11.7-14.4)
[2017-12-28 03:33] LABS: CLARITY,URINE SL CLOUDY (CLEAR); COLOR,URINE YELLOW (YELLOW)
[2017-12-28 03:34] LABS: BILIRUBIN,URINE NEGATIVE (NEGATIVE); KETONES,URINE NEGATIVE (NEGATIVE); LEUKOCYTE ESTERASE ,URINE TRACE (NEGATIVE); NITRITE,URINE NEGATIVE (NEGATIVE); PROTEIN,URINE DIPSTICK 2+ (NEGATIVE); URINE UROBILINOGEN 1 mg/dL (0.2 - 1)
[2017-12-28 03:37] LABS: INR 1.93; PROTHROMBIN TIME 20.7 seconds (11.9-14.5)
[2017-12-28 03:38] LABS: PARTIAL THROMBOPLASTIN TIME 46.3 seconds (23.8-35.5)
[2017-12-28 03:44] LABS: WBC,URINE (MAN) >50 /HPF (0-5)
[2017-12-28 03:45] LABS: BACTERIA,URINE MODERATE /HPF; EPITHELIAL CELLS,URINE FEW /LPF; MUCUS,URINE MODERATE (RARE)
[2017-12-28 03:46] LABS: ALANINE AMINOTRANSFERASE 32 IU/L (0-55); ALBUMIN 3.5 g/dL (3.5-5.0); ALBUMIN/GLOBULIN RATIO 0.8 (0.8-2.0); ALKALINE PHOSPHATASE 94 IU/L (40-150); ANION GAP 15.7 mmol/L (8-16); BLOOD UREA NITROGEN 16 mg/dL (7-26); BUN/CREATININE RATIO 16 (6-25); CALCIUM 9.2 mg/dL (8.4-10.2); CARBON DIOXIDE 20 mmol/L (22-29); CHLORIDE 106 mmol/L (98-107); CREATININE, SERUM 1.03 mg/dL (0.72-1.25); EST GLOMERULAR FILTRATION RATE > 60 ML/MIN (60-); GLUCOSE 107 mg/dL (74-118); POTASSIUM 4.7 mmol/L (3.5-5.1); SODIUM 137 mmol/L (136-145)
[2017-12-28] MEDS ORDERED: CEFTRIAXONE SOD 500 MG VIAL ONE (03:59)
[2017-12-28] MEDS ORDERED: CEFTRIAXONE SOD 1 GM VIAL IV ONE (04:00)
== END 2017-12-28 04:34 | disposition home or self-care (01) ==
LOC: ER 02:47
DX: R30.0 Dysuria (principal); N30.91 Cystitis, unspecified with hematuria; Z85.118 Personal history of other malignant neoplasm of bronchus and lung; Z92.21 Personal history of antineoplastic chemotherapy
CPT/HCPCS: 36415; 80053; 81001; 85025; 85610; 85730; 87086; 99283; J0696

== ENCOUNTER 2020-06-16 17:13 | Emergency (ER) | payer BC, MEDICARE ==
[~2020-06-16] VITALS: Ht 175.3 cm; Wt 104.3 kg
[2020-06-16 20:04] VITALS: BP 136/78
== END 2020-06-16 20:06 | disposition home or self-care (01) ==
LOC: ER 18:10
DX: M79.89 Other specified soft tissue disorders (principal); M79.622 Pain in left upper arm; E78.5 Hyperlipidemia, unspecified; N40.0 Benign prostatic hyperplasia without lower urinary tract symptoms; Z85.118 Personal history of other malignant neoplasm of bronchus and lung; Z98.84 Bariatric surgery status
CPT/HCPCS: 93971; 99283

== ENCOUNTER 2020-12-15 14:34 | Emergency (ER) | payer BC, MEDICARE ==
[~2020-12-15] VITALS: Ht 175.3 cm; Wt 104.3 kg
[2020-12-16] MEDS ORDERED: REGLAN10 MG PO (15:19)
== END 2020-12-15 16:15 | disposition home or self-care (01) ==
LOC: ER 14:51
DX: U07.1 COVID-19 (principal); R06.02 Shortness of breath; C34.90 Malignant neoplasm of unspecified part of unspecified bronchus or lung
CPT/HCPCS: 71045; 99284; U0002

== ENCOUNTER 2020-12-16 14:02 | Emergency (ER) | payer BC, MEDICARE ==
[~2020-12-16] VITALS: Ht 175.3 cm; Wt 104.3 kg
[2020-12-16] MEDS ORDERED: ONDANSETRON HCL INJ 2MG/ML 2ML 2 MG/ML VIAL IV STA (14:19)
[2020-12-16 14:26] LABS: BASOPHILS % 0.2 % (0.0-1.0); EOSINOPHILS % 0.2 % (0.0-6.0); HEMATOCRIT 31.7 % (38.2-49.6); HEMOGLOBIN 10.1 g/dL (14.0-18.0); LYMPHOCYTES # (AUTO) 0.6 (1.0-3.2); MEAN CORPUSCULAR HEMOGLOBIN 28.4 pg (28-32); MEAN CORPUSCULAR HGB CONC 31.9 g/dL (31-35); MONOCYTES # (AUTO) 0.5 (0.2-0.8); MONOCYTES % 5.5 % (4.4-11.3); NEUTROPHILS % 87.6 % (38.7-80.0); PLATELET COUNT 230 x10e3/uL (140-360); RED BLOOD COUNT 3.56 x10e6/uL (4.3-5.7); RED CELL DISTRIBUTION WIDTH 14.4 % (11.7-14.4)
[2020-12-16] MEDS ORDERED: SODIUM CHLORIDE 0.9% 1000ML 1,000 ML IV ONE (14:30)
[2020-12-16 14:44] LABS: ALBUMIN 2.7 g/dL (3.5-5.0); ALBUMIN/GLOBULIN RATIO 0.6 (0.8-2.0); ANION GAP 15.7 mmol/L (8-16); CALCIUM 8.3 mg/dL (8.4-10.2); CREATININE, SERUM 0.92 mg/dL (0.72-1.25); POTASSIUM 3.7 mmol/L (3.5-5.1)
[2020-12-16] MEDS ORDERED: REGLAN10 MG PO (15:19)
== END 2020-12-16 16:00 | disposition home or self-care (01) ==
LOC: ER 14:20
DX: U07.1 COVID-19 (principal); E78.5 Hyperlipidemia, unspecified; Z85.9 Personal history of malignant neoplasm, unspecified
CPT/HCPCS: 36415; 80053; 85025; 99283; J2405; J7030